=== PATIENT | female | born 1965 | race Caucasian/White ===

== ENCOUNTER 2018-01-25 18:27 | Emergency (ER) | payer SELFPAY ==
[~2018-01-25] VITALS: Ht 170.2 cm; Wt 86.4 kg
[2018-01-25 18:32] VITALS: TEMP 98
[2018-01-25] MEDS ORDERED: DESYREL 100MG100 MG PO (21:35)
[2018-01-25] MEDS ORDERED: [UNRECOGNIZED DRUG - OTHER] (21:36)
[2018-01-25] MEDS ORDERED: BUTALBITAL (21:36)
[2018-01-25] MEDS ORDERED: NORCO 325 MG-101 TAB PO (21:36)
[2018-01-25] MEDS ORDERED: ZANAFLEX 4MG TAB4 MG PO (21:36)
[2018-01-25] MEDS ORDERED: NEURONTIN100 MG/CAP PO (21:37)
[2018-01-25] MEDS ORDERED: PHENERGAN 25 TA25 MG PO (21:37)
[2018-01-25] MEDS ORDERED: PREDNISONE1 MG (21:38)
[2018-01-25 21:56] LABS: BASO # 0.1 (0.0-0.2); BASO % 0.8 % (0.0-2.0); EOS # 0.1 (0.0-0.7); EOS % 0.9 % (0-4.0); GRAN # 3.4 (1.4-6.5); GRAN % 54.3 % (42.2-75.2); LYMPH # 2.3 (1.2-3.4); LYMPH % 36.1 % (20.0-51.0); MEAN CELL VOLUME 82 fl (80.0-100.0); MEAN CORPUSCULAR HGB CONC 34 g/dl (33.0-37.0); MEAN PLATELET VOLUME 10.8 fl (7.4-10.4); MONO # 0.5 (0.1-0.6); MONO % 7.6 % (1.7-9.3); RED BLOOD COUNT 4.08 M/mm3 (4.10-5.30); REDCELL DISTRIBUTION WIDTH-CV 12.6 % (11.5-14.5)
[2018-01-25 21:58] LABS: HEMATOCRIT 33.4 % (37.0-47.0); HEMOGLOBIN 11.4 g/dl (12.5-16.0); MEAN CORPUSCULAR HEMOGLOBIN 28 pg (27.0-31.0); PLATELET COUNT 136 K/mm3 (130-400)
[2018-01-25 22:04] LABS: ALBUMIN 3.2 gm/dL (3.5-5.0); BILIRUBIN,TOTAL 0.2 mg/dL (0.0-1.0); CALCIUM 8.5 mg/dL (8.4-10.2); CREATININE, serum 0.69 mg/dL (0.52-1.25); POTASSIUM 3.6 mmol/L (3.4-5.0); TOTAL PROTEIN 5.9 gm/dL (6.4-8.2)
[2018-01-25] MEDS ORDERED: LASIX 20MG TABL20 MG PO (22:39)
[2018-01-25 22:48] VITALS: BP 160/88; PULSE 79
== END 2018-01-25 22:47 | disposition home or self-care (01) ==
LOC: COL.ER 18:27
PROVIDERS: Emergency Medicine
DX: R60.1 Generalized edema (principal); G43.909 Migraine, unspecified, not intractable, without status migrainosus; G35 Multiple sclerosis; F17.210 Nicotine dependence, cigarettes, uncomplicated; Z90.49 Acquired absence of other specified parts of digestive tract; Z90.89 Acquired absence of other organs; Z98.890 Other specified postprocedural states; Z79.52 Long term (current) use of systemic steroids